=== PATIENT | female | born 1980 | race Caucasian/White ===

== ENCOUNTER 2024-10-14 08:01 | Day surgery (SDC) | payer BC ==
[2024-10-12 13:11] LABS: BASOPHILS # (AUTO) 0.1 X10'3 (0-0.2); BASOPHILS % (AUTO) 0.8 % (0-1); BILIRUBIN,URINE NEGATIVE (Neg); CLARITY,URINE CLEAR (Clear); COLOR,URINE YELLOW (Yellow); EOSINOPHILS # (AUTO) 0.3 X10'3 (0-0.9); EOSINOPHILS % (AUTO) 2.3 % (0-6); GLUCOSE, URINE NEGATIVE (Neg); KETONES,URINE TRACE mg/dl (Neg); LEUKOCYTE ESTERASE ,URINE NEGATIVE (Neg); LYMPHOCYTES # (AUTO) 2.2 X10'3 (1.1-4.8); LYMPHOCYTES % (AUTO) 17.2 % (21-51); MEAN CORPUSCULAR HEMOGLOBIN 29.5 PG (27.0-31.0); MEAN CORPUSCULAR HGB CONC 33.2 g/dL (33.0-36.5); MEAN CORPUSCULAR VOLUME 89.1 FL (78-98); MEAN PLATELET VOLUME 9.5 FL (7.4-10.4); MONOCYTES # (AUTO) 0.7 X10'3 (0-0.9); MONOCYTES % (AUTO) 5.4 % (2-12); NEUTROPHILS # (AUTO) 9.6 X10'3 (1.8-7.7); NEUTROPHILS % (AUTO) 74.3 % (42-75); NITRITES, URINE NEGATIVE (Neg); OCCULT BLOOD,URINE NEGATIVE (Neg); PH,URINE 5.5 (4.8-8.0); PRE OP HEMATOCRIT 45.1 % (35.0-45.0); PRE OP PLATELET COUNT 280 X10'3 (140-440); PROTEIN,URINE NEGATIVE (Neg); RED BLOOD COUNT 5.07 X10'6 (4.20-5.60); RED CELL DISTRIBUTION WIDTH 14.4 % (11.5-14.5); UROBILINOGEN,URINE 0.2 E.U/dL (0.2-1.0)
[2024-10-12 13:13] LABS: UA COLLECTION TYPE CLN CATCH MIDSTREAM
[2024-10-12 13:24] LABS: HEMOGLOBIN A1C 5.6 % (4.5-6.2)
[2024-10-12 13:27] LABS: ALBUMIN 3.6 G/DL (3.4-5.0); ALBUMIN/GLOBULIN RATIO 0.9 (1.1-1.5); ALKALINE PHOSPHATASE 100 IU/L (46-116); BLOOD UREA NITROGEN 21 MG/DL (7-18); BUN/CREATININE RATIO 26.6 (10.0-20.0); CHLORIDE 102 MMOL/L (99-107); CREATININE 0.79 MG/DL (0.40-0.90); PRE OP ALT 21 U/L (30-65); PRE OP ANION GAP 7 (8-16); PRE OP AST 13 U/L (10-37); PRE OP BILIRUB, TOTAL 0.8 MG/DL (0.0-1.0); PRE OP GLUCOSE 102 MG/DL (70-104); PRE OP POTASSIUM 4.4 MMOL/L (3.4-5.1); PRE OP SODIUM 137 MMOL/L (135-145); TOTAL CARBON DIOXIDE 28.4 MMOL/L (24-32); TOTAL PROTEIN 7.6 G/DL (6.4-8.2); eGFR 78 ML/MIN
[2024-10-12 13:45] LABS: HCG SERUM QL NEGATIVE
[2024-10-14] VITALS (13 sets, daily range): BP systolic 95–126; BP diastolic 53–68; PULSE 73–80; RESP 16–25; TEMP 97.5–99; O2SAT 94–100
[~2024-10-14] VITALS: Ht 170.2 cm; Wt 140.4 kg
[~2024-10-14 08:01] MED LIST: ATOR20TA66 PO; CYCL7.5T25 PO; DOCUMENT DATE & TIME OF BETA-BLOCKER PO ONE; ERGO500056 PO; FISH OIL OMEGA 3 PO; METF-438 PO; METO25TA6 PO; SULF1TAB45 PO; TIRZ15PE SQ; TRAM50TA2 PO
[2024-10-14] MEDS: famotidine 20mg tablet PO ONE (09:05)
[2024-10-14] MEDS: ringers solution, lacted 1,000 ML IV SCH ×2 (09:06→12:02)
[2024-10-14] MEDS: CEFAZOLIN 3GM/DEXTROSE 150mL 150 ML IV ONE (10:05)
[2024-10-14] MEDS ORDERED: bacitracin 15gm ointment TP ONE (10:17)
[2024-10-14] MEDS ORDERED: BUPIVAcaine/PF 2.5mg/ml (0.25%) 10ml vial ONE (10:17)
[2024-10-14] MEDS ORDERED: sevoflurane 250ml liquid IH ONE (10:22)
[2024-10-14] MEDS ORDERED: morphine 4 MG/ML inj SYRINge IV PRN (10:25)
[2024-10-14] MEDS ORDERED: meperidine/PF 25mg/ml syringe IV PRN ×3 (10:25)
[2024-10-14] MEDS ORDERED: proCHLORperazine 10 MG/2 ml inj IV PRN (10:25)
[2024-10-14] MEDS ORDERED: morphine 2 MG/ML inj. syringe IV PRN (10:25)
[2024-10-14] MEDS ORDERED: ondansetron/PF 4mg/2ml inj IV PRN (10:25)
[2024-10-14] MEDS ORDERED: fentaNYL/PF 50MCG/1 ML 2ML syringe ONE (10:26)
[2024-10-14] MEDS ORDERED: propofol inj 20 ML IV ONE (10:34)
[2024-10-14] MEDS ORDERED: midazolam 1 mg/ML 2ml injection ONE (10:34)
[2024-10-14] MEDS ORDERED: vancomycin 1,000mg inj ONE (10:57)
[2024-10-14] MEDS: BUPIVAcaine/PF 2.5mg/ml (0.25%) 10ml vial IJ ONE (10:59)
[2024-10-14] MEDS ORDERED: crutches (11:19)
[2024-10-14] MEDS ORDERED: [UNRECOGNIZED DRUG - SUPPLY] (11:19)
[2024-10-14] MEDS ORDERED: naloxone 0.4 mg/ml inj IV PRN (11:35)
[2024-10-14] MEDS ORDERED: meperidine/PF 100mg/ml syringe IV PRN ×3 (11:37→11:38)
[2024-10-14] MEDS: traMADol 50MG tablet PO ONE (12:00)
[2024-10-14] MEDS ORDERED: PCA WASTE DOCUMENTATION 1 MG ML MC SCH (13:00)
== END 2024-10-14 12:41 | disposition home or self-care (01) ==
LOC: PAS 08:01
PROVIDERS: ATTEND Podiatrist
DX: M84.474A Pathological fracture, right foot, initial encounter for fracture (principal); E11.9 Type 2 diabetes mellitus without complications; I10 Essential (primary) hypertension; F32.A Depression, unspecified; J45.909 Unspecified asthma, uncomplicated; E78.5 Hyperlipidemia, unspecified; Z79.899 Other long term (current) drug therapy; Z98.890 Other specified postprocedural states
CPT/HCPCS: 28113; 36415; 73620; 80053; 81003; 82948; 83036; 84703; 85025; 93005; J2250; J2704; J3010; J3370; J3490; J7030; J7120; Z7506; Z7512; 76000; A4618; A6446; A6449; A7000